=== PATIENT | male | born 1990 | race Hispanic/Latino ===

== ENCOUNTER 2018-05-17 07:31 | Emergency (ER) | payer OTHER ==
[2018-05-17 07:35] VITALS: BMI 23.7
[2018-05-17] MEDS ORDERED: LIDOCAINE 2% 10ML 20 MG/ML VIAL IJ STA (08:02)
[2018-05-17] MEDS ORDERED: Lidocaine/Epi 1% 1:100000 20 ML IJ ONE (08:02)
--- NOTE | 2018-05-17 08:22 | ED PDOC ---
Upper Extremity Pain/Injury Time Seen by Provider: 05/17/18 07:53 Chief Complaint (Provider): Laceration History Per: Patient History/Exam Limitations: no limitations Additional Complaint(s): 28 y/o male with no pmhx presents to ER for evaluation of laceration to left thumb on loose mirror onset this morning. Patient reports his tetanus shot is within the last 3 years. He denies any weakness or numbness. PMD: non provided Past Medical History Reviewed: Historical Data, Nursing Documentation, Vital Signs Vital Signs: Last Vital Signs Temp 98.3 F 05/17/18 07:35 Pulse 84 05/17/18 07:35 Resp 20 05/17/18 07:35 BP 134/87 05/17/18 07:35 Pulse Ox 99 05/17/18 07:35 - Medical History PMH: No Chronic Diseases - Surgical History Surgical History: No Surg Hx - Family History Family History: States: Unknown Family Hx - Home Medications Home Medications: Ambulatory Orders Medication Instructions Recorded Cephalexin [cephalexin] 500 mg PO BID #10 cap 05/17/18 - Allergies Allergies/Adverse Reactions: Allergies Allergy/AdvReac Type Severity Reaction Status Date / Time No Known Allergies Allergy Verified 07/13/15 00:22 Review of Systems ROS Statement: Except As Marked, All Systems Reviewed And Found Negative Musculoskeletal: Negative for: Hand Pain (of left thumb) Neurological: Negative for: Weakness (of left hand/thumb), Numbness (of left hand/thumb) Physical Exam - Reviewed Nursing Documentation Reviewed: Yes Vital Signs Reviewed: Yes - Physical Exam Appears: Positive for: Non-toxic, No Acute Distress Head Exam: Positive for: ATRAUMATIC, NORMOCEPHALIC Skin: Positive for: Normal Color, Warm, Dry Extremity: Positive for: Normal ROM, Other (4 cm laceration to left thumb linear through dermal layer) Neurologic/Psych: Positive for: Alert, Oriented (x3) - ECG O2 Sat by Pulse Oximetry: 99 (RA) Pulse Ox Interpretation: Normal Medical Decision Making Medical Decision Making: Time: 800 Initial Plan: --Lidocaine/Epinephrine 1 ml IJ --Motrin 600 mg PO --Hand left thumb x-ray 0820 X-ray reviewed, potential FB noted on XRay does not match wound, no noted FB in wound to base in bloodless field procedure note laceration repair 4cm to L thumb simple complexity no debridement needed verbal consent obtained anesthestized w 5ml lidocaine 1%, 1ml lido w epi used for hemostasis subdermally w success irrigated 250ml sterile saline and explored to base, no obvious tendon or nerve injury, patient had FROM and intact sensation prior to anesthesia 3-0 nylon used sterile fashion 6 interrupted sutures applied wound care explained at length short course oral Abx given hand injury, bacitracin sample provided and instructions explained sutures out 7-8 days thumb splint applied use for 3 days Scribe Attestation: Documented by Camryn Catalan, acting as a scribe for Eric Prince MD. Provider Scribe Attestation: All medical record entries made by the Scribe were at my direction and personally dictated by me. I have reviewed the chart and agree that the record accurately reflects my personal performance of the history, physical exam, medical decision making, and the department course for this patient. I have also personally directed, reviewed, and agree with the discharge instructions and disposition. Disposition - Clinical Impression Clinical Impression: Thumb laceration - Patient ED Disposition Is Patient to be Admitted: No Counseled Patient/Family Regarding: Studies Performed, Diagnosis, Need For Followup - Disposition Referrals: Eugene Mendez MD [Medical Doctor] - Disposition: Routine/Home Disposition Time: 09:00 Condition: STABLE Additional Instructions: Keep clean and dry x3 days, wear splint x3 days, then warm soapy water 2x daily, use bacitracin 2x daily and dressing change daily. Take keflex 500mg 2x daily for 5 days. Return to ER for any worse or new symptoms, fever, redness or any concern. Prescriptions: Cephalexin [cephalexin] 500 mg PO BID #10 cap Instructions: Laceration Repair With Stitches (DC) Forms: [facility] (Portuguese)
[2018-05-17] MEDS ORDERED: Lidocaine 1% w Epi 1:100,000 Inj ONE (08:38)
[2018-05-17] MEDS ORDERED: Lidocaine 2% MPF (5 ml) Inj ONE (08:39)
--- NOTE | 2018-05-17 08:59 | RAD ---
Date of service: 05/17/2018 PROCEDURE: Left Thumb radiographs. HISTORY: L thumb trauma /laceration COMPARISON: None. TECHNIQUE: AP radiograph of the left hand, as well as spot oblique and lateral images of thumb were obtained. FINDINGS: LEFT THUMB: There are soft tissue changes compatible with laceration and overlying bandaging over the 1st digit centered to the metacarpal phalangeal joint. No cortical interruption or fracture seen. No dislocation. There are 2 linear hyperdensities are more distal is less dense and appears more superficial in position on some of the images and may relate to either bandaging or very superficial foreign body. The more proximal more hyperdense opacity similarly may be foreign body and/or related to bandaging is still within the superficial soft tissues but appears more centered to the actual laceration soft tissue defect (series [id number], image 2. Digital arrow show these areas. The more distal as mentioned above may be extrinsic and overlying the skin in this location. JOINTS: No significant osteoarthrosis noted. SOFT TISSUES: Altered as above OTHER FINDINGS: None. IMPRESSION: Soft tissue alteration compatible with laceration. No osseous fracture or osseous cortical defect. Soft tissue tiny 1 to 2 mm hyperdensities 82 the bandaging and or foreign body-the more proximal appears within the actual laceration defect whereas the more distal is probably very superficial and may be laying on the scan. Correlate clinically Comments: Study marked for PA review .
[2018-05-17 09:38] VITALS: BP 122/78; PULSE 79; RESP 18; TEMP 98.5
[2018-05-17 17:08] VITALS: O2SAT 99
== END 2018-05-17 09:37 | disposition home or self-care (01) ==
LOC: H.ER 07:31
DX: S61.012A Laceration without foreign body of left thumb without damage to nail, initial encounter (principal); W25.XXXA Contact with sharp glass, initial encounter; Y92.89 Other specified places as the place of occurrence of the external cause